=== PATIENT | female | born 1970 | race Caucasian/White ===

== ENCOUNTER → 2017-03-01 | Outpatient (CLI) | payer OTHER | END | disposition home or self-care (01) | LOC: LAB.O 10:26 | PROVIDERS: ATTEND Family Medicine | DX: M25.9 Joint disorder, unspecified (principal); M79.1 Myalgia; M32.10 Systemic lupus erythematosus, organ or system involvement unspecified; R53.82 Chronic fatigue, unspecified ==

== ENCOUNTER → 2019-06-18 | Outpatient (CLI) | payer OTHER | LOC: GMAL 13:55 | PROVIDERS: ATTEND Family Medicine | DX: Z00.01 Encounter for general adult medical examination with abnormal findings (principal); E55.9 Vitamin D deficiency, unspecified ==

== ENCOUNTER → 2020-04-08 | Outpatient (CLI) | payer OTHER | LOC: GMAL 14:48 | PROVIDERS: ATTEND Family Medicine | DX: Z00.01 Encounter for general adult medical examination with abnormal findings (principal) ==

== ENCOUNTER → 2020-06-16 | Outpatient (CLI) | payer OTHER | LOC: GMAL 16:47 | PROVIDERS: ATTEND Family Medicine | DX: R53.83 Other fatigue (principal); E55.9 Vitamin D deficiency, unspecified ==